=== PATIENT | female | born 2005 | race Caucasian/White ===

== ENCOUNTER 2025-05-27 03:19 | Emergency (ER) | payer OTHER ==
[~2025-05-27] VITALS: Ht 160 cm; Wt 52.2 kg
[2025-05-27] MEDS ORDERED: Dexamethasone Sod Phos 10 MG/ML 1ML VIAL IM ONE (06:55)
[2025-05-27] MEDS ORDERED: Dexamethasone Sod Phos 10 MG/ML 1ML VIAL PO ONE (08:20)
== END 2025-05-27 08:24 | disposition home or self-care (01) ==
LOC: ER 03:19
DX: J02.9 Acute pharyngitis, unspecified (principal); F17.290 Nicotine dependence, other tobacco product, uncomplicated; Z88.5 Allergy status to narcotic agent
CPT/HCPCS: 87081; 87430; 99283; A9270; J1100